=== PATIENT | male | born 1985 | race Hispanic/Latino ===

== ENCOUNTER 2023-12-08 02:20 | Emergency (ER) | payer BC ==
[~2023-12-08] VITALS: Ht 175.3 cm; Wt 136.1 kg
[2023-12-08 02:24] VITALS: BP 106/112; PULSE 84; RESP 18
== END 2023-12-08 05:20 | disposition left against medical advice (07) ==
LOC: EDH 02:20
DX: H53.8 Other visual disturbances (principal); Z53.21 Procedure and treatment not carried out due to patient leaving prior to being seen by health care provider